=== PATIENT | male | born 1990 | race Two or more races ===

== ENCOUNTER 2020-07-28 11:15 | Emergency (ER) | payer MEDICAID ==
[~2020-07-28 11:15] MED LIST: CLIN-97 PO; ONDA4TAB6 PO
== END 2020-07-28 12:06 | disposition left against medical advice (07) ==
LOC: ER 11:16
DX: M54.9 Dorsalgia, unspecified (principal); Z53.21 Procedure and treatment not carried out due to patient leaving prior to being seen by health care provider

== ENCOUNTER 2022-09-07 10:28 | Emergency (ER) | payer MEDICAID, OTHER ==
[~2022-09-07] VITALS: Ht 180.3 cm; Wt 86.0 kg
[2022-09-07 10:31] VITALS: BP 120/72
[2022-09-07] MEDS ORDERED: TRAM50TA2 PO (10:58)
[2022-09-07] MEDS ORDERED: PENI250T2 PO (10:58)
[2022-09-07] MEDS ORDERED: NAPR-56 PO (10:58)
== END 2022-09-07 11:41 | disposition home or self-care (01) ==
LOC: ER 10:28
DX: K04.7 Periapical abscess without sinus (principal); F31.9 Bipolar disorder, unspecified; F15.90 Other stimulant use, unspecified, uncomplicated; F12.90 Cannabis use, unspecified, uncomplicated; F11.90 Opioid use, unspecified, uncomplicated; Z56.0 Unemployment, unspecified; Z60.2 Problems related to living alone; Z79.899 Other long term (current) drug therapy
CPT/HCPCS: 99283